=== PATIENT | female | born 1975 | race Caucasian/White ===

== ENCOUNTER 2017-08-02 11:10 | Day surgery (SDC) | payer BC ==
[~2017-08-02] VITALS: Ht 165.1 cm; Wt 85.7 kg
--- NOTE | ~2017-08-02 | O ---
[facility] [address] OPERATIVE REPORT Name: SARAH MCGEE Room #: DEP [facility] M.R.#: [id number] Admission: 08/02/17 Attend Phys: Adama Ferreira MD Discharge: 08/02/17 Date of : 75 Report #: [id number] THIS REPORT FOR: //name// CC: Suleman Clark DATE OF SERVICE: 08/02/2017 DATE OF SERVICE: 08/02/2017 PREOPERATIVE DIAGNOSIS: Left knee lateral meniscus tear and degenerative changes lateral compartment. POSTOPERATIVE DIAGNOSIS: Left knee lateral meniscus tear and degenerative changes lateral compartment. PROCEDURE: Left knee arthroscopy, partial lateral meniscectomy and chondroplasty of lateral tibial plateau. SURGEON: Adama Ferreira MD MACHINE STACKER: ANDREE Garcia ANESTHETIC: General. INDICATIONS: See hospital H and P. DESCRIPTION OF PROCEDURE: After adequate general anesthesia had been obtained, the patient's left lower extremity was prepped and draped in the usual meticulous sterile fashion. Limb was exsanguinated with gravity and tourniquet inflated to 350 torr. Superomedial portal was established by first infiltrating with 0.5% Naropin, then making a stab incision with an 11 blade. Inflow cannula placed. Knee was insufflated with fluid. Anterolateral and anteromedial portals were established utilizing the same technique. Complete diagnostic arthroscopy was performed. Medial compartment was normal to inspection and probing. Cruciate ligaments were intact. She was noted in the intercondylar notch to have a displaced bucket-handle tear in the intercondylar notch region, of the lateral meniscus. This was inspected and it was clearly a chronic condition and the meniscus was too damaged for repair. It was then detached from its anterior and posterior attachments and removed. The residual meniscus was smoothed with a shaver, of which there was very little. The chondral surface on the tibial plateau was full thickness and did demonstrate full thickness thinning posterolaterally. The unstable chondral fragments were smoothed with a shaver. The [facility] [address] [place] [address] OPERATIVE REPORT Name: SARAH MCGEE Room #: DEP [facility] M.R.#: [id number] Admission: 08/02/17 Attend Phys: Adama Ferreira MD Discharge: 08/02/17 Date of : 75 Report #: [id number] condyle was remarkably intact, only some grade 2 change posteriorly. Patellofemoral compartment demonstrated no specific abnormality. At this time, the knee was irrigated copiously, 0.5% Naropin infiltrated into the knee. Portals were closed with 4-0 nylon. Sterile compressive was applied. Tourniquet deflated. <ELECTRONICALLY SIGNED> By: Adama Ferreira MD 08/05/172009 [id number] [id number] Adama Ferreira MD /nt
[~2017-08-02 11:10] MED LIST: FISH OIL 1,001000 M2 PO
[2017-08-02 12:29] VITALS: BP 131/83
[2017-08-02 14:59] VITALS: BP 131/83
== END 2017-08-02 15:43 | disposition home or self-care (01) ==
LOC: OR 11:10 → TBA 14:37 → OR 14:37
DX: M23.262 Derangement of other lateral meniscus due to old tear or injury, left knee (principal); M94.262 Chondromalacia, left knee; Z87.891 Personal history of nicotine dependence; Z98.890 Other specified postprocedural states; Z90.710 Acquired absence of both cervix and uterus
CPT/HCPCS: 50010; 50101; 50405; 50612; 51038; 54170; 56526; 62110; 62900; 70005